=== PATIENT | female | born 1970 | race Caucasian/White ===

== ENCOUNTER → 2017-01-06 | Outpatient (REF) | payer OTHER | LOC: M LAB REF 17:50 | PROVIDERS: ATTEND Specialist | DX: Z12.4 Encounter for screening for malignant neoplasm of cervix (principal) ==

== ENCOUNTER → 2018-12-08 | Outpatient (REF) | LOC: M LAB LCGH 17:12 | PROVIDERS: ATTEND Physician Assistant | DX: C44.721 Squamous cell carcinoma of skin of unspecified lower limb, including hip (principal); L57.0 Actinic keratosis ==

== ENCOUNTER → 2019-01-12 | Outpatient (REF) | LOC: M LAB LCGH 13:39 | PROVIDERS: ATTEND Surgery | DX: C44.722 Squamous cell carcinoma of skin of right lower limb, including hip (principal) ==

== ENCOUNTER → 2019-03-28 | Outpatient (REF) | payer OTHER ==
[2019-03-28 14:47] LABS: INFLUENZA A AMPLIFICATION NEGATIVE (NEGATIVE); INFLUENZA B AMPLIFICATION NEGATIVE (NEGATIVE)
== END ==
LOC: M LAB REF 13:57
PROVIDERS: ATTEND Physician Assistant Medical
DX: R50.9 Fever, unspecified (principal)

== ENCOUNTER → 2020-01-10 | Outpatient (CLI) | payer BC, OTHER ==
--- NOTE | 2020-01-10 12:07 | REPMRS ---
Patient History The patient states she had a clinical breast exam in 01/12 Patient is postmenopausal. Family history of unknown cancer at age 67 in paternal grandmother, unknown cancer at age 47 in maternal grandfather. Took hormonal contraceptives for 4 years. 3D TOMOSYNTHESIS WAS PERFORMED. The Brett Hernandez lifetime risk for breast cancer is 9.2%. Volpara breast density b. Digital Woman Screen Mammo: January 10, 2020 - Exam #: [id number] Bilateral CC and MLO view(s) were taken. Technologist: Carlene Irby, Technologist Prior study comparison: April 15, 2012, digital woman screen mammo performed at [facility]. April 16, 2011, digital woman screen mammo performed at [facility]. FINDINGS: There are scattered fibroglandular densities. There has been no change in the appearance of the mammogram from the prior studies. There is a mild amount of residual fibroglandular tissue which is fairly symmetric. There is no interval development of dominant mass, architectural distortion, or clustered microcalcification suggestive of malignancy. Assessment: BI-RADS/ACR category 1 mammogram. Negative Mammogram. Recommendation Routine screening mammogram in 1 year (for women over age 40). This mammogram was interpreted with the aid of an FDA-approved computer-aided dectection system. Electronically Signed By: Ian Sterling MD 01/10/20 [id number]
== END ==
LOC: M WHC 10:18
PROVIDERS: ATTEND Specialist
DX: Z12.31 Encounter for screening mammogram for malignant neoplasm of breast (principal); Z80.9 Family history of malignant neoplasm, unspecified

== ENCOUNTER → 2020-01-10 | Outpatient (REF) | payer OTHER | LOC: M SFHCWAGY 13:23 | PROVIDERS: ATTEND Specialist | DX: Z12.4 Encounter for screening for malignant neoplasm of cervix (principal) | CPT/HCPCS: 87624; G0123 ==

== ENCOUNTER → 2020-01-11 | Outpatient (CLI) | payer BC, OTHER | LOC: EEVIPCON 12:59 → M LABSMTC 12:59 | PROVIDERS: ATTEND Family Medicine | DX: Z20.828 Contact with and (suspected) exposure to other viral communicable diseases (principal) ==

== ENCOUNTER → 2020-07-25 | Outpatient (CLI) | payer BC, OTHER | LOC: M LABSMTC 11:10 | PROVIDERS: ATTEND Anesthesiology | DX: Z01.812 Encounter for preprocedural laboratory examination (principal); Z20.822 Contact with and (suspected) exposure to COVID-19 ==

== ENCOUNTER 2020-07-30 09:59 | Day surgery (SDC) | payer BC, OTHER ==
[~2020-07-30] VITALS: Ht 157.5 cm; Wt 64.3 kg
[~2020-07-30 09:59] MED LIST: NS 1,000 ML IV ONE
[2020-07-30] MEDS ORDERED: LIDOCAINE 2% 100MG/5ML SDV (FOR ANES.) As Ordered ONE (11:53)
[2020-07-30] MEDS ORDERED: propofoL 200 MG/20 ML VIAL As Ordered ONE ×2 (11:53→12:10)
[2020-07-30] MEDS ORDERED: fentaNYL 100 MCG/2 ML INJECTION (J3010) As Ordered ONE (11:53)
--- NOTE | 2020-07-30 12:52 | ROOR ---
Patient Name: Kimberly Mcclure Procedure Date: 07/30/2020 11:50 AM Date of : 1970 Age: 49 Room: [facility] Gender: Female Note Status: Finalized Procedure: Upper GI endoscopy Indications: Heartburn Providers: Josr Warren MD Referring MD: Joan Peña NP Requesting Provider: Medicines: Monitored Anesthesia Care Complications: No immediate complications. Procedure: Pre-Anesthesia Assessment: - Prior to the procedure, a History and Physical was performed, and patient medications and allergies were reviewed. The patient is competent. The risks and benefits of the procedure and the sedation options and risks were discussed with the patient. All questions were answered and informed consent was obtained. Patient identification and proposed procedure were verified by the physician, the nurse and the anesthesiologist in the procedure room. Mental Status Examination: alert and oriented. Airway Examination: normal oropharyngeal airway and neck mobility. Respiratory Examination: clear to auscultation. CV Examination: normal. Prophylactic Antibiotics: The patient does not require prophylactic antibiotics. Prior Anticoagulants: The patient has taken no previous anticoagulant or antiplatelet agents. ASA Grade Assessment: II - A patient with mild systemic disease. After reviewing the risks and benefits, the patient was deemed in satisfactory condition to undergo the procedure. The anesthesia plan was to use monitored anesthesia care (MAC). Immediately prior to administration of medications, the patient was re-assessed for adequacy to receive sedatives. The heart rate, respiratory rate, oxygen saturations, blood pressure, adequacy of pulmonary ventilation, and response to care were monitored throughout the procedure. The physical status of the patient was re-assessed after the procedure. The Endoscope was introduced through the mouth, and advanced to the second part of duodenum. The upper GI endoscopy was accomplished without difficulty. The patient tolerated the procedure well. Findings: The examined esophagus was normal. The Z-line was regular and was found at the gastroesophageal junction. Diffuse moderate inflammation characterized by congestion (edema), erythema and granularity was found in the gastric body and in the gastric antrum. Biopsies were taken with a cold forceps for histology. Verification of patient identification for the specimen was done by the physician and nurse using the patient's name, date and medical record number. Estimated blood loss was minimal. Multiple medium sessile fundic gland polyps with no bleeding and no stigmata of recent bleeding were found in the gastric fundus and in the gastric body. This was biopsied with a cold forceps for histology. The duodenal bulb and second portion of the duodenum were normal. Impression: - Normal esophagus. - Z-line regular, at the gastroesophageal junction. - Gastritis. Biopsied. - Multiple fundic gland polyps. Biopsied. - Normal duodenal bulb and second portion of the duodenum. Recommendation: - Patient has a contact number available for emergencies. The signs and symptoms of potential delayed complications were discussed with the patient. Return to normal activities tomorrow. Written discharge instructions were provided to the patient. - High fiber diet. - Continue present medications. - Await pathology results. - Follow an antireflux regimen. - Use sucralfate suspension 1 gram PO QID for 4 weeks. - Telephone GI clinic for pathology results in 2 weeks. - Return to primary care physician. Procedure Code(s): --- Professional --- 00419, Esophagogastroduodenoscopy, flexible, transoral; with biopsy, single or multiple Diagnosis Code(s): --- Professional --- K29.70, Gastritis, unspecified, without bleeding K31.7, Polyp of stomach and duodenum R12, Heartburn CPT copyright 2019 [employer]. All rights reserved. The codes documented in this report are preliminary and upon superintendent power review may be revised to meet current compliance requirements. Josr Warren MD Josr Warren MD 07/30/2020 12:51:41 PM Electronically signed by Josr Warren MD Number of Addenda: 0 Note Initiated On: 07/30/2020 11:50 AM Estimated Blood Loss: Estimated blood loss was minimal.
[2020-07-30 13:08] VITALS: BP 115/75
--- NOTE | 2020-07-30 13:09 | ROOR ---
Patient Name: Kimberly Mcclure Procedure Date: 07/30/2020 11:51 AM Date of : 1970 Age: 49 Room: [facility] Gender: Female Note Status: Finalized Procedure: Colonoscopy Indications: Screening for colorectal malignant neoplasm Providers: Josr Warren MD Referring MD: Joan Peña NP Requesting Provider: Medicines: Monitored Anesthesia Care Complications: No immediate complications. Procedure: Pre-Anesthesia Assessment: - Prior to the procedure, a History and Physical was performed, and patient medications and allergies were reviewed. The patient is competent. The risks and benefits of the procedure and the sedation options and risks were discussed with the patient. All questions were answered and informed consent was obtained. Patient identification and proposed procedure were verified by the physician, the nurse and the anesthesiologist in the pre-procedure area. Mental Status Examination: alert and oriented. Airway Examination: normal oropharyngeal airway and neck mobility. Respiratory Examination: clear to auscultation. CV Examination: normal. Prophylactic Antibiotics: The patient does not require prophylactic antibiotics. Prior Anticoagulants: The patient has taken no previous anticoagulant or antiplatelet agents. ASA Grade Assessment: II - A patient with mild systemic disease. After reviewing the risks and benefits, the patient was deemed in satisfactory condition to undergo the procedure. The anesthesia plan was to use monitored anesthesia care (MAC). Immediately prior to administration of medications, the patient was re-assessed for adequacy to receive sedatives. The heart rate, respiratory rate, oxygen saturations, blood pressure, adequacy of pulmonary ventilation, and response to care were monitored throughout the procedure. The physical status of the patient was re-assessed after the procedure. The Colonoscope was introduced through the anus and advanced to the terminal ileum, with identification of the appendiceal orifice and IC valve. The colonoscopy was performed with moderate difficulty due to multiple diverticula in the colon and restricted mobility of the colon. Successful completion of the procedure was aided by withdrawing the scope and replacing with the enteroscope. The patient tolerated the procedure well. The quality of the bowel preparation was good. The terminal ileum, ileocecal valve, appendiceal orifice, and rectum were photographed. Scope insertion time was 6 minutes. Scope withdrawal time was 9 minutes. The total duration of the procedure was 16 minutes. Findings: The perianal and digital rectal examinations were normal. The terminal ileum appeared normal. Multiple small and large-mouthed diverticula were found in the sigmoid colon. There was narrowing of the colon in association with the diverticular opening. There was no evidence of diverticular bleeding. Non-bleeding external and internal hemorrhoids were found during retroflexion. The hemorrhoids were medium-sized. Impression: - The examined portion of the ileum was normal. - Moderate diverticulosis in the sigmoid colon. There was narrowing of the colon in association with the diverticular opening. There was no evidence of diverticular bleeding. - Non-bleeding external and internal hemorrhoids. - No specimens collected. Recommendation: - Patient has a contact number available for emergencies. The signs and symptoms of potential delayed complications were discussed with the patient. Return to normal activities tomorrow. Written discharge instructions were provided to the patient. - High fiber diet. - Continue present medications. - Use fiber, for example Citrucel, Fibercon, Konsyl or Metamucil. - Repeat colonoscopy in 5 years for screening purposes. - Return to GI clinic if persistent symptoms or new symptoms. - Return to primary care physician. Procedure Code(s): --- Professional --- 18539, Colonoscopy, flexible; diagnostic, including collection of specimen(s) by brushing or washing, when performed (separate procedure) Diagnosis Code(s): --- Professional --- Z12.11, Encounter for screening for malignant neoplasm of colon K64.8, Other hemorrhoids K57.30, Diverticulosis of large intestine without perforation or abscess without bleeding CPT copyright 2019 [employer]. All rights reserved. The codes documented in this report are preliminary and upon water meter reader review may be revised to meet current compliance requirements. Josr Warren MD Josr Warren MD 07/30/2020 1:09:07 PM Electronically signed by Josr Warren MD Number of Addenda: 0 Note Initiated On: 07/30/2020 11:51 AM Estimated Blood Loss: Estimated blood loss was minimal.
== END 2020-07-30 13:23 | disposition home or self-care (01) ==
LOC: M OPP 09:59
PROVIDERS: ATTEND Internal Medicine Gastroenterology
DX: Z12.11 Encounter for screening for malignant neoplasm of colon (principal); K57.30 Diverticulosis of large intestine without perforation or abscess without bleeding; K64.8 Other hemorrhoids; K29.70 Gastritis, unspecified, without bleeding; K31.7 Polyp of stomach and duodenum; R12 Heartburn
CPT/HCPCS: 43239; 45378; 88305; J3010

== ENCOUNTER → 2021-07-31 | Outpatient (CLI) | payer BC, OTHER | LOC: M WHC 08:47 | PROVIDERS: ATTEND Specialist | DX: Z12.31 Encounter for screening mammogram for malignant neoplasm of breast (principal); Z80.9 Family history of malignant neoplasm, unspecified ==

== ENCOUNTER → 2021-07-31 | Outpatient (REF) | payer BC | LOC: M PLALAB 08:10 | PROVIDERS: ATTEND Specialist | DX: Z12.4 Encounter for screening for malignant neoplasm of cervix (principal) | CPT/HCPCS: 87624; G0123 ==

== ENCOUNTER → 2023-09-15 | Outpatient (CLI) | payer BC | LOC: M RAD 15:24 | PROVIDERS: ATTEND Nurse Practitioner Adult Health | DX: R22.42 Localized swelling, mass and lump, left lower limb (principal) ==

== ENCOUNTER → 2023-10-16 | Outpatient (CLI) | payer BC | LOC: M WHC 13:45 | PROVIDERS: ATTEND Nurse Practitioner Adult Health | DX: N95.0 Postmenopausal bleeding (principal); D25.9 Leiomyoma of uterus, unspecified ==

== ENCOUNTER → 2023-10-22 | Outpatient (CLI) | payer BC ==
[~2023-10-22] MED LIST changes: -NS 1,000 ML IV ONE; +PROHANCE 279.3MG/ML 15ML VIAL ONE
== END ==
LOC: M PLAIMG 10:14
PROVIDERS: ATTEND Nurse Practitioner Adult Health
DX: D48.7 Neoplasm of uncertain behavior of other specified sites (principal)

== ENCOUNTER → 2023-12-16 | Outpatient (CLI) | payer BC | LOC: M WHC 08:43 | PROVIDERS: ATTEND Nurse Practitioner Adult Health | DX: N64.4 Mastodynia (principal) | CPT/HCPCS: 77066; G0279 ==

== ENCOUNTER 2023-12-31 07:59 | Day surgery (SDC) | payer BC ==
[~2023-12-31] VITALS: Ht 157.5 cm; Wt 67.4 kg
[2023-12-31] MEDS ORDERED: THERTAB52 PO (08:50)
[2023-12-31 09:20] LABS: HEMATOCRIT 37.9 % (36.0-47.0); HEMOGLOBIN 12.4 g/dl (12.0-15.5); MEAN CORPUSCULAR HEMOGLOBIN 28.7 pg (27.0-33.0); MEAN CORPUSCULAR HGB CONC 32.7 g/dl (32.0-36.5); MEAN CORPUSCULAR VOLUME 87.7 fl (80.0-96.0); PLATELET COUNT, AUTOMATED 264 10^3/uL (150-450); RED BLOOD COUNT 4.32 10^6/uL (4.00-5.40); WHITE BLOOD COUNT 4.9 10^3/uL (4.0-10.0)
[2023-12-31] MEDS ORDERED: propofoL 200 MG/20 ML VIAL As Ordered ONE (09:37)
[2023-12-31] MEDS ORDERED: LIDOCAINE 2% 100MG/5ML SDV (FOR ANES.) As Ordered ONE (09:37)
[2023-12-31] MEDS ORDERED: ONDANSETRON 4MG 2ML VIAL As Ordered ONE (09:38)
[2023-12-31] MEDS ORDERED: GLYCOPYRROLATE INJ 0.2 MG/ML 2 ML VIAL As Ordered ONE (09:38)
[2023-12-31] MEDS ORDERED: MIDAZOLAM INJ 2MG/2ML VIAL As Ordered ONE (09:41)
[2023-12-31] MEDS ORDERED: fentaNYL 100 MCG/2 ML INJECTION As Ordered ONE (09:42)
[2023-12-31] MEDS ORDERED: fentaNYL 100 MCG/2 ML INJECTION IV PRN (10:35)
[2023-12-31] MEDS ORDERED: ONDANSETRON 4MG 2ML VIAL IV PRN (10:35)
[2023-12-31] MEDS: oxyCODONE 5MG TAB PO PRN (10:57)
[2023-12-31] MEDS: KETOROLAC 30 MG/ML 1ML VIAL IV ONE (10:57)
[2023-12-31] MEDS: ACETAMINOPHEN 500 MG TAB PO ONE (11:04)
[2023-12-31 12:30] VITALS: BP 125/80; TEMP 97; O2SAT 97
== END 2023-12-31 13:00 | disposition home or self-care (01) ==
LOC: M SDC 07:59
PROVIDERS: ATTEND Specialist
DX: N84.1 Polyp of cervix uteri (principal); N95.0 Postmenopausal bleeding; K21.9 Gastro-esophageal reflux disease without esophagitis; Z85.828 Personal history of other malignant neoplasm of skin; Z88.5 Allergy status to narcotic agent
CPT/HCPCS: 36415; 58558; 85027; 88305; J1100; J1596; J1885; J2250; J2405; J3010

== ENCOUNTER → 2024-03-07 | Outpatient (REF) | payer BC ==
[~2024-03-07] MED LIST changes: -PROHANCE 279.3MG/ML 15ML VIAL ONE; +THERTAB52 PO
[2024-03-07 17:02] LABS: HEMATOCRIT 40.8 % (36.0-47.0)
[2024-03-07 17:21] LABS: IRON (FE) 89 UG/DL (50-170); TOTAL IRON BINDING CAPACITY 356 UG/DL (250-425)
[2024-03-07 17:40] LABS: HEPATITIS B SURFACE ANTIGEN NEGATIVE (NEGATIVE)
[2024-03-07 18:01] LABS: HEPATITIS C VIRUS ABY INDEX < 0.02 INDEX (<0.8)
[2024-03-07 18:02] LABS: HEPATITIS B CORE ANTIBODY IGM NEGATIVE (NEGATIVE)
== END ==
LOC: M LAB REF 16:19
PROVIDERS: ATTEND Nurse Practitioner Adult Health
DX: R74.01 Elevation of levels of liver transaminase levels (principal)

== ENCOUNTER → 2024-04-12 | Outpatient (CLI) | payer BC | LOC: M WHC 09:03 | PROVIDERS: ATTEND Nurse Practitioner Adult Health | DX: R74.01 Elevation of levels of liver transaminase levels (principal) ==